=== PATIENT | female | born 1985 | race Hispanic/Latino ===

== ENCOUNTER 2019-02-07 01:24 | Observation (INO) | payer SELFPAY ==
[2019-02-07 01:51] LABS: #Basophils 0.1 thou/uL (0.0-0.2); #Eosinphils 0.1 thou/uL (0.0-0.7); #Monocytes 0.5 thou/uL (0.11-0.59); #Neutrophils 7.7 thou/uL (1.40-6.50); %Basophils 0.8 % (0.0-1.0); %Lymphocytes 19.3 % (21.0-51.0); %Neutrophils 73.9 % (42.0-75.0); Hemoglobin 12.2 g/dL (12.0-16.0); Mean Corpuscular HGB CONC 34.9 g/dL (32.0-36.0); Mean Corpuscular Hemoglobin 32.2 pg (27.0-31.0); Mean Corpuscular Volume 92.3 fL (78.0-98.0); Mean Platelet Volume 7.1 fL (7.4-10.4); Platelet Count 293 thou/uL (130-400); RBC Distribution Width 11.2 % (11.5-14.5); Red Blood Cell (RBC) Count 3.79 mill/uL (4.20-5.40); White Blood Cell (WBC) Count 10.5 thou/uL (4.8-10.8)
[2019-02-07 02:15] LABS: ALT (SGPT) 25 U/L (8-55); AST (SGOT) 20 U/L (5-34); Albumin 4.3 g/dL (3.5-5.0); Alkaline Phosphatase 92 U/L (40-150); Anion Gap 11 mmol/L (10-20); BUN (Urea Nitrogen) 17 mg/dL (7.0-18.7); Bilirubin, Total 0.3 mg/dL (0.2-1.2); Calc. Creatinine Clearance 0 mL/min (70-130); Calcium 9.8 mg/dL (7.8-10.44); Carbon Dioxide 28 mmol/L (22-29); Chloride 101 mmol/L (98-107); Estimated GFR-MDRD 46; Globulin 3.3 g/dL (2.4-3.5); Glucose 143 mg/dL (70-105); Lipase 10 U/L (8-78); Potassium 3.6 mmol/L (3.5-5.1); Protein, Total 7.6 g/dL (6.0-8.3); Sodium 136 mmol/L (136-145)
[2019-02-07] MEDS ORDERED: Ondansetron ODT 4 MG TAB ONE (02:32)
[2019-02-07 02:42] LABS: Pregnancy Test - Urine (BHCG) POSITIVE (Negative)
[2019-02-07 02:43] LABS: Bilirubin Negative (Negative); Blood, Urine Negative (Negative); Clarity CLEAR (Clear); Glucose, Urine (Dipstick) Negative (Negative); Leukocyte Negative (Negative); Nitrite Negative (Negative); Pregu Control Background? CLEAR/WHITE (CLR/WHITE); Pregu Control Bar Appear? YES (CONTROL BAR); Protein, Urine (Dipstick) Trace mg/dL (Neg-Trace); Urobilinogen 0.2 mg/dL (0.2-1.0)
[2019-02-07] MEDS ORDERED: Morphine 4 MG/ML VIAL ONE (03:56)
[2019-02-07] MEDS ORDERED: Acetaminophen 325 MG TAB PO PRN (04:12)
[2019-02-07] MEDS ORDERED: Ondansetron PF 4 MG/2 ML Vial IVP PRN (04:12)
[2019-02-07] MEDS ORDERED: Fentanyl 100 MCG/2 ML VIAL ONE ×4 (04:53→12:17)
[2019-02-07] MEDS ORDERED: Ketorolac Tromethamine 30 MG/ML VIAL ONE ×2 (05:15→14:07)
--- NOTE | 2019-02-07 05:46 | HP ---
CHIEF COMPLAINT: Left lower quadrant pain. HISTORY OF PRESENT ILLNESS: This is a 33-year-old, G3, P2-0-0-2 at unknown gestation, who presented to the emergency department for vaginal bleeding with passage of clots earlier and left lower quadrant pain. The patient reports that she has had vaginal bleeding off and on for the last 2 months and did not know she was prior to her arrival. She previously had regular monthly cycles up until about 2 months ago. She had days of spotting or no bleeding with other periods of heavier bleeding. Her bleeding became heavier about 2 weeks ago, then stopped and then started spotting again. Tonight, she started experiencing heavier bleeding as well, but it slowed down. She reports onset of left lower quadrant pain today that she describes as constant, but throbbing. She denies any other complaints today. REVIEW OF SYSTEMS: Negative for head, eyes, ears, nose, throat, cardiovascular, respiratory, GI, , neuropsych, musculoskeletal, skin, or constitutional symptoms other than mentioned above. PAST MEDICAL HISTORY: None. PAST SURGICAL HISTORY: 1. Knee surgery. 2. Prior x2. MEDICATIONS: None. ALLERGIES: NO KNOWN DRUG ALLERGIES. SOCIAL HISTORY: Negative for tobacco, alcohol, or drug abuse. 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 Naif Jiménez. The last baby was 8 years ago. She denies any history of STDs. PHYSICAL EXAMINATION: VITAL SIGNS: Afebrile with normal vital signs. GENERAL: Awake, alert, no acute distress. Appears comfortable. CHEST: Nonlabored breathing. ABDOMEN: Soft, minimally tender to palpation in the left lower quadrant. No guarding. No rebound. No masses palpated. PELVIC: Deferred. LABORATORY DATA: HCG level 2290, hemoglobin 12.2, hematocrit 35.0, otherwise unremarkable. IMAGING: Transvaginal ultrasound was performed by Radiology but no formal report is back yet. Revealing a uterus with no obvious gestational sac. Ovaries were visualized and appear within normal limits. There is a questionable mass on the left side, but no evidence of gestational sac. There is little to no free fluid in the pelvis. ASSESSMENT AND PLAN: A 33-year-old, 3, para 2, with early of unknown gestation and unknown location. The patient's exam is completely benign at this time. There is no obvious ectopic , although it cannot be ruled out at this point and still remains highly suspicious. Given the HCG level below the threshold and clinical findings, I will place the patient on observation for serial abdominal exams. I did discuss with the patient the concern for ectopic and possible course in management and she voices understanding. We will continue to monitor at this time. Job ID: [id number] MTDD
[2019-02-07 06:29] VITALS: BMI 35.4
[2019-02-07] MEDS ORDERED: Sodium Chloride 0.9% 10 ML ONE (06:42)
[2019-02-07] MEDS: Sodium Chloride 0.9% 1,000 ML IV SCH ×2 (06:44→16:30)
--- NOTE | 2019-02-07 07:26 | PRG ---
DATE OF SERVICE: 02/07/2019 SUBJECTIVE: The patient is experiencing more pain since I saw her last. She reports that her pain is now about a 6/10 and is requesting medication. She denies other complaints at this time. OBJECTIVE: VITAL SIGNS: Blood pressure 122/79, pulse 56, respiratory rate 20, temperature 97.7. GENERAL: Awake, alert, in no acute distress. CHEST: Nonlabored breathing. ABDOMEN: Soft, tender to palpation with voluntary guarding in the left lower quadrant. ASSESSMENT AND PLAN: A 33-year-old G3, P2, with suspected left ectopic , now with more findings on clinical exam consistent with that. I discussed continued expectant management versus diagnostic laparoscopy with left salpingectomy if a mass is found and recommend proceeding with this before rupture is evident given her change in clinical findings. She agrees and will be set up for diagnostic laparoscopy with possible left salpingectomy later today with Dr. Haji. Morphine ordered for pain. Consents will be signed prior to administration to any narcotics. Job ID: [id number] [facility]
[2019-02-07] MEDS: Morphine 4 MG/ML VIAL SLOW IVP PRN ×2 (07:39→12:44)
[2019-02-07] MEDS ORDERED: Midazolam HCl 2 mg/2 ml Vial ONE (08:55)
--- NOTE | 2019-02-07 09:19 | ULT ---
PRELIMINARY REPORT/[facility]/EMERGENCY AFTER HOURS PROCEDURE Addendum created by Fransico Lockwood MD on 02/07/2019 4:47 AM Central Time ([place] & [place]) THIS REPORT CONTAINS FINDINGS THAT MAY BE CRITICAL TO PATIENT CARE. The findings were verbally communicated via telephone conference with Concetta Meza at 4:47 AM CDT on 02/07/2019. The findings were acknowledged and understood. Initial Report created on 02/07/2019 4:40 AM Central Time ([place] & [place]) EXAM: US First Trimester, Transabdominal and US , Transvaginal US Duplex Artery and Vein of the Abdominal and/or Reproductive Organs. Complete Ovaries EXAM DATE/TIME: 02/07/2019 3:13 AM CLINICAL HISTORY: 33 years old, female; Pain and signs and symptoms; Lmp or gestational age (in weeks): Unknown; Antepa rtum complications; complicated by abdominal or pelvic pain; ; Patient HX: Llq pain and back pain with vaginal bleeding (on/off) x 2 months, n/v TECHNIQUE: Imaging protocol: Real-time transabdominal obstetrical ultrasound of the maternal pelvis and a first trimester , less than 14 weeks 0 days, with image documentation. Transvaginal imaging was us ed for better evaluation of the fetus and adnexa. Real-time duplex ultrasound scan of the arterial an d venous flow with color Doppler flow and spectral waveform analysis. Complete duplex exam focused on the ovaries. Duplex exam was added to evaluate for ovarian torsion or mass. COMPARISON: No relevant prior studies available. FINDINGS: Transabdominal ultrasound showed a large pelvic mass. Transvaginal ultrasound was performed for furth er evaluation. Duplex ultrasound scan with color Doppler flow and spectral waveform analysis was also performed for evaluation of pelvic and ovarian blood flow and torsion. Gestation: No intrauterine gestational sac. Large heterogeneous echogenicity left paraovarian/parauterine mass measuring up to 6.7cm, concerning for ectopic . Uterus: Endometrium measures 0.7 cm in thickness. No myometrial mass. Cervix: No acute findings. Right adnexa: No acute findings. Normal duplex of the ovary. No evidence of torsion. Left adnexa: See above. Small thick walled centrally cystic structure may represent a corpus luteum o r could be a part of the large left adnexal mass described above. Normal duplex of the ovary. No evid ence of torsion. Intraperitoneal: Trace free fluid. IMPRESSION: Large left paraovarian/parauterine mass described above, concerning for ectopic . Thank you for allowing us to participate in the care of your patient. Dictated and Authenticated by: Fransico Lockwood MD 02/07/2019 4:40 AM Central Time ([place] & [place]) FINAL REPORT TRANSVAGINAL PELVIC ULTRASOUND: HISTORY: patient with left lower quadrant lower back pain. Intermittent vaginal bleeding x2 months. Nausea and vomiting. Serum beta hCG of 2290.15. TECHNIQUE: Transabdominal and endovaginal imaging of the pelvis is performed. The ovaries are interrogated with willis-scale, color-flow, and Doppler imaging with spectral wave-form analysis. FINDINGS: A uterus is identified, measuring 8.8 x 3.9 x 5.1 cm. There is no evidence of a myometrial mass. Th e endometrial stripe is 0.7 cm. No evidence of a gestational sac, a yolk sac, or a pole. In t he left adnexa, there is a heterogeneous echotexture mass, measuring 3.4 cm. This lesion is paraovar veronica. There does appear to be an associated anechoic focus, measuring 1 cm. The possibility of an ec topic cannot be excluded. A large corpus luteal cyst is a second, though less favored, con sideration. There is vascular flow to both ovaries. IMPRESSION: Heterogeneous mass in the left paraovarian/left adnexal region. There is concern for ectopic pregnan cy until proven otherwise. This report is in agreement with the preliminary report by [facility]. POS: MAU
[2019-02-07] MEDS ORDERED: Bupivacaine HCl 0.5%/Epinephrine 1:200,000/PF 30 ml Vial ONE (09:20)
[2019-02-07] MEDS ORDERED: Promethazine HCl 25 MG/ML VIAL SLOW IVP PRN (12:16)
[2019-02-07] MEDS ORDERED: Promethazine HCl 25 MG/ML VIAL IM PRN (12:16)
[2019-02-07] MEDS ORDERED: Ondansetron HCl/PF 4 MG/2 ML Vial IVP PRN (12:16)
[2019-02-07] MEDS ORDERED: Ibuprofen 800 MG TAB PO PRN (13:14)
[2019-02-07] MEDS ORDERED: traMADol HCl 50 MG TAB PO PRN (13:14)
[2019-02-07] MEDS ORDERED: Morphine 4 MG/ML VIAL SLOW IVP PRN (13:20)
[2019-02-07] MEDS ORDERED: Succinylcholine Chloride 20 MG/ML 10 ml SYRINGE FS ONE (14:07)
[2019-02-07] MEDS ORDERED: Ondansetron PF 4 MG/2 ML Vial ONE (14:07)
[2019-02-07] MEDS ORDERED: Dexamethasone 20 MG/5 ML VIAL ONE (14:07)
[2019-02-07] MEDS ORDERED: PROPOFOL 200 MG/20 ML VIAL ONE (14:07)
[2019-02-07] MEDS ORDERED: ePHEDrine 50 MG/ML VIAL ONE (14:07)
[2019-02-07] MEDS ORDERED: Rocuronium Bromide 10 MG/ML (10ML VIAL) ONE (14:07)
[2019-02-07] MEDS ORDERED: Glycopyrrolate 0.2 MG/ML 5 ML SYRINGE ONE (14:07)
[2019-02-07] MEDS ORDERED: Lidocaine 1% PF 5 ML VIAL ONE (14:07)
[2019-02-07 16:12] VITALS: BP 110/69; TEMP 98.2
[2019-02-07 17:50] LABS: Anion Gap 10 mmol/L (10-20); BUN (Urea Nitrogen) 10 mg/dL (7.0-18.7); Calc. Creatinine Clearance 135 mL/min (70-130); Calcium 9.1 mg/dL (7.8-10.44); Carbon Dioxide 27 mmol/L (22-29); Chloride 102 mmol/L (98-107); Estimated GFR-MDRD 74; Glucose 131 mg/dL (70-105); Potassium 4.6 mmol/L (3.5-5.1); Sodium 134 mmol/L (136-145)
--- NOTE | 2019-02-08 00:22 | OP ---
DATE OF PROCEDURE: 02/07/2019 PROCEDURE: Diagnostic laparoscopy with left partial salpingectomy. PREOPERATIVE DIAGNOSES: 1. Abdominal pain. 2. Left adnexal mass. 3. Suspected for ectopic. POSTOPERATIVE DIAGNOSIS: Left tubal . ANESTHESIA: General. ESTIMATED BLOOD LOSS: Less than 50 cc. COMPLICATIONS: None. COUNTS: Correct. CONDITION: Stable to recovery room. SPECIMENS: Left tubal segment with products of conception. FINDINGS: Old adhesive disease in the pelvis, particularly in the left tubo-ovarian complex suggesting an old pelvic infection. The patient's right tube and ovary also show some disease, but anatomy is still clearly defined. Left portion of the tube holding the ectopic clearly visible. DESCRIPTION OF PROCEDURE: Ms. Nanda Marie is a 33-year-old female, who presented to the emergency room with abdominal pain and was diagnosed with a left adnexal mass and a positive test with no intrauterine . The patient was taken to the operating room where she was identified as herself after providing written informed consent for diagnostic laparoscopy. She was placed under general anesthesia without difficulty and placed in dorsal lithotomy position in [facility]. She was prepared and draped in normal sterile fashion. Given the possibility of an intrauterine , a single sponge stick was placed vaginally to assist with manipulation of the uterus. Attention was then placed abdominally where a Veress needle was introduced at the base of the umbilicus and upon entry, the abdomen was insufflated to 15 mmHg. A 5 mm skin incision was made in the base of the umbilicus and a 5 mm port with trocar was then introduced and proper placement was confirmed by laparoscope. The patient was noted to have some minimal blood in the abdominal cavity, very minimal and in the pelvis with some Trendelenburg, it immediately became apparent that there was a left tubal . However, on further inspection, it was noted that the tube had been densely adhesed to adnexal complex involving the ovary, tube, and some of the pelvic sidewall. The right tube and ovary, although were more easily identified separately and in proper anatomic position, appeared to have some filmy and a few band-like adhesions present. The tube appeared to be more stiff than should be and the end of the tube, though the fimbria were clearly visible, appeared to be beginning the process of clubbing, all likely a result of a previous infection. A 3rd port with trocar was inserted in the suprapubic region, 11 mm. This was done under direct visualization. With the aid of a LigaSure device and graspers, the tube carrying the ectopic was inspected and the tubo-ovarian complex was manipulated the best we could to try to clearly identify where the vascular structures were for the ovary. There was also some concern about the ureter. The right ureter was clearly visible and deep in the pelvis. This tubal complex was well away from the sidewall itself, though appeared to be arising out of this complex that had partially adhesed to the sidewall. With the aid of the LigaSure device, the isthmic portion of the tube was transected and immediately inferior to the tube, this tubal segment carrying the ectopic was excised. The fimbrial end of the tube was not visible as it was in this adhesed complex. There was blood clot present in what appeared to be in a cystic portion of the ovary and in the cavity presumed to be the end portion of the tube. This area was thoroughly irrigated and found to be hemostatic. There were a couple small areas in this complex that required hemostasis with fulguration with the bipolar device. The tubal segment with ectopic was then removed with an EndoCatch bag through the suprapubic port. Given the complex and adhesed nature of the tubo-ovarian complex, there was a desire to clearly see the ureter on that left side. The physiologic adhesions of the sigmoid colon to the left sidewall were taken down with blunt and sharp dissection and the peritoneum was inspected along that pelvic sidewall and clearly was not visible was the ureter at the level of this complex. Given this, there was fairly good certainty that the ureter was not involved in the complex itself and thus distant from the surgical site. With this completed, the abdomen was irrigated and the patient was taken out of Trendelenburg for which she was in most of the case. Abdomen was deflated to 8 mmHg and continued to have hemostasis. The ports were removed. Abdomen was then closed with 4-0 Monocryl on all 3 sites, the fascial incisions being subcentimeter or just at 1 cm. This sponge stick was removed from the vagina and the patient was extubated and taken to recovery in stable condition. Job ID: [id number]
--- NOTE | 2019-02-08 02:03 | DIS ---
DATE OF ADMISSION: 02/07/2019 DATE OF DISCHARGE: 02/07/2019 PREOPERATIVE DIAGNOSIS: Abdominal pain with suspected ectopic . DISCHARGE DIAGNOSIS: Left tubal ectopic . PROCEDURE: Diagnostic laparoscopy with left salpingectomy. CONSULTATIONS: None. HOSPITAL COURSE: The patient is a 33-year-old year old female who presented to Labor and Delivery with abdominal pain. The patient was noted to have an elevated quant about 2200 with a left adnexal mass. Given the overall picture, decision was made for the patient to come in for observation and serial exams. By morning time, it was more clear that this pain was worsening and the patient was taken to the operating room for a diagnostic laparoscopy at which case, a left tubal was confirmed and the tube was removed. For complete details, please refer to the operative note. The patient was subsequently extubated and taken back to the floor for recovery. She has been able to tolerate food, is getting good pain control with her medications. She is ambulating and voiding on her own. The patient will be discharged to home. She has instructions to follow up with [facility] [place] in 2 weeks for postop check. She also has instructions to seek medical attention should she experience increased bleeding, pain, fever, redness or drainage from her incision sites. She will be going home with tramadol 50 mg 1-2 tablets every 4 hours as needed for pain #10 and 800 mg of ibuprofen taken 3 times a day as needed for pain, #2. Job ID: [id number]
== END 2019-02-07 18:12 | disposition home or self-care (01) ==
LOC: ERS 01:24 → 3SE 05:50
PROVIDERS: ADMIT Obstetrics & Gynecology; ATTEND Obstetrics & Gynecology
PROC: 10T24ZZ Resection of Products of Conception, Ectopic, Percutaneous Endoscopic Approach (ICD-10-PCS; principal; 2019-02-07)
PROC: 0UT64ZZ Resection of Left Fallopian Tube, Percutaneous Endoscopic Approach (ICD-10-PCS; 2019-02-07)
DX: O00.102 Left tubal pregnancy without intrauterine pregnancy (principal); Z88.1 Allergy status to other antibiotic agents; Z79.899 Other long term (current) drug therapy
CPT/HCPCS: 36415; 51701; 76856; 80053; 81003; 81025; 83690; 84702; 85025; 86850; 86900; 86901; 88305; 96361; 96374; 96375; 96376; A4353; G0378; J0670; J1100; J1885; J2001; J2250; J2270; J2405; J2704; J3010; J3490; Q0162

== ENCOUNTER 2019-05-06 17:02 | Observation (INO) | payer OTHER ==
[2019-05-06] MEDS ORDERED: Morphine 4 MG/ML VIAL ONE ×2 (17:33→19:12)
[2019-05-06 17:34] LABS: #Eosinphils 0.1 thou/uL (0.0-0.7); #Lymphocytes 2.9 thou/uL (1.20-3.40); #Monocytes 0.5 thou/uL (0.11-0.59); %Basophils 0.6 % (0.0-1.0); %Eosinophils 1.8 % (0.0-10.0); %Lymphocytes 38.9 % (21.0-51.0); %Monocytes 6.2 % (0.0-10.0); %Neutrophils 52.5 % (42.0-75.0); Hemoglobin 13.4 g/dL (12.0-16.0); Mean Corpuscular HGB CONC 34.8 g/dL (32.0-36.0); Mean Corpuscular Hemoglobin 31.6 pg (27.0-31.0); Mean Corpuscular Volume 90.8 fL (78.0-98.0); Mean Platelet Volume 7.9 fL (7.4-10.4); Platelet Count 297 thou/uL (130-400); Red Blood Cell (RBC) Count 4.24 mill/uL (4.20-5.40); White Blood Cell (WBC) Count 7.6 thou/uL (4.8-10.8)
[2019-05-06] MEDS ORDERED: Ondansetron PF 4 MG/2 ML Vial ONE (17:34)
[2019-05-06] MEDS ORDERED: Ketorolac Tromethamine 30 MG/ML VIAL ONE (17:34)
[2019-05-06 17:53] LABS: ALT (SGPT) 40 U/L (8-55); AST (SGOT) 28 U/L (5-34); Albumin 4.3 g/dL (3.5-5.0); Alkaline Phosphatase 131 U/L (40-150); Anion Gap 13 mmol/L (10-20); BUN (Urea Nitrogen) 12 mg/dL (7.0-18.7); Bilirubin, Total 0.3 mg/dL (0.2-1.2); Calc. Creatinine Clearance 0 mL/min (70-130); Calcium 9.4 mg/dL (7.8-10.44); Carbon Dioxide 25 mmol/L (22-29); Chloride 103 mmol/L (98-107); Estimated GFR-MDRD 61; Globulin 3.3 g/dL (2.4-3.5); Glucose 82 mg/dL (70-105); Potassium 3.7 mmol/L (3.5-5.1); Protein, Total 7.6 g/dL (6.0-8.3); Sodium 137 mmol/L (136-145)
--- NOTE | 2019-05-06 18:49 | ULT ---
PELVIC ULTRASOUND: 05/06/19 Transabdominal and endovaginal ultrasound of the pelvis performed. HISTORY: Patient had ectopic in January with left salpingectomy. Patient has been recently diagnosed wi th a second ectopic on the right. Those images were obtained at an outside institution and are not available. The patient has had methotrexate treatment. Continued pain. FINDINGS: The uterus appears normal size measuring 8.8 cm in length x 4.3 cm AP dimension. On the endovaginal exam, the endometrial stripe is within normal range measured at 4 to 5 mm. There i s free fluid in the cul-de-sac. The right ovary is identified and there are normal appearing follicles. Color Doppler with spectral a nalysis demonstrates blood flow to the right ovary. There is evidence of a mass adjacent to the right ovary with a central cystic region which suggests a n ectopic with a gestational sac. There is evidence of a tiny yolk sac within this apparent ectopic. A measurement of this apparent ectopic gestation is 2.4 cm. The gestational sac/cystic comp onent is measured in the 1 cm range. Left ovary is identified. A large left ovarian cyst is measured at up to 3 cm. IMPRESSION: 1. Small to moderate free fluid in the pelvis. 2. Evidence of an ectopic in the right adnexa adjacent to the right ovary with gestati onal sac and evidence of a tiny yolk sac. 3. Both ovaries are identified with follicular cysts seen bilaterally as described above. POS: AGW
--- NOTE | 2019-05-06 19:40 | HP ---
TIME OF SERVICE: 1910 hours. REASON FOR ADMISSION: Right lower quadrant pain with known right ectopic status post methotrexate. HISTORY OF PRESENT ILLNESS: Ms. Marie is a 34-year-old 4, para 2, ectopic 1, now ectopic 2, who has been seen since March for a known right ectopic , status post left salpingectomy for left ectopic in January of 2019. She has received 2 doses of methotrexate at 50 mg/m2 in early March and late March. She has had declining beta HCG since the second dose of methotrexate. She reports onset of right lower quadrant pain yesterday that has been stable since then rating about a 6 or 7/10. She denies nausea, vomiting, or syncope. 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 No history of STDs, ectopic in January as noted. PAST MEDICAL HISTORY: None. PAST SURGICAL HISTORY: Knees and . MEDICATIONS: Methotrexate. ALLERGIES: NONE. SOCIAL HISTORY: Denies tobacco, alcohol, or drug abuse. FAMILY HISTORY: Noncontributory. REVIEW OF SYSTEMS: Positive only for right lower quadrant pain. PHYSICAL EXAMINATION: GENERAL: female. VITAL SIGNS: Pulse 86, respirations 18, temperature 98.7, blood pressure 110/72. HEENT: Within normal limits to auscultation bilaterally. HEART: Regular rate and rhythm. ABDOMEN: Soft and nontender. She has mild guarding to deep palpation in the right lower quadrant. She has no rebound. She has no CVA tenderness. Of note, the patient has received 1 mg of morphine and some Toradol pre-exam. RECTAL: Perineum reveals no bleeding. PELVIC: Deferred. EXTREMITIES: Without clubbing, cyanosis, or edema. LABORATORY DATA: Laboratory reveals hematocrit of 38%, which is consistent with the patient's previous hemograms. Basement is within normal limits. Her beta-hCG is 471, which is a decrease from 704 on 05/02 and 1466 on 04/25, 2769 on 04/16, and a peak of 5398 at second methotrexate administration on 04/12. IMAGING STUDIES: Ultrasound this evening reveals a normal uterus. No intrauterine . Normal right ovary. A 3 cm simple cyst on the left ovary and a complex mass in the right adnexa with a possible gestational sac measuring 1 cm with the overall ectopic diameter of 2.4 cm. There is a small amount, if any of free fluid in the pelvis, there is no bowel noted to be floating in the pelvis. IMPRESSION: Known right ectopic status post methotrexate administration x2 with declining beta-hCGs, status post left salpingectomy, and ultrasound findings consistent with minimal amount of intra-abdominal hemorrhage. The patient's pain is consistent with expected pain that is usually found status post methotrexate with resolution of ectopic . PLAN: Discussed options with the patient. Options include laparoscopic right salpingectomy versus serial hematocrits, exam, and expectant management. The patient desires to preserve right tube, if possible. We will admit to the hospital. Repeat hemoglobin and hematocrit in a.m., and follow up with serial exams. We will return the patient's care over to Dr. Diego Goode on Wednesday, 05/08. Job ID: [id number]
[2019-05-06] MEDS ORDERED: Zolpidem Tartrate 5 MG TAB PO PRN (22:04)
[2019-05-06] MEDS ORDERED: Ondansetron PF 4 MG/2 ML Vial IVP PRN (22:04)
[2019-05-06] MEDS ORDERED: Ondansetron ODT 4 MG TAB PO PRN (22:04)
[2019-05-06] MEDS ORDERED: Acetaminophen 325 MG TAB PO PRN (22:04)
[2019-05-06] MEDS ORDERED: Famotidine 20 MG TAB PO SCH (22:15)
[2019-05-06 22:25] VITALS: BMI 35.9
[2019-05-06] MEDS ORDERED: traZODone HCl 50 MG TAB PO SCH (22:30)
[2019-05-06] MEDS ORDERED: ALPRAZolam 1 MG TAB PO SCH (22:30)
[2019-05-06] MEDS ORDERED: hydrOXYzine 25 MG TAB PO SCH (22:30)
[2019-05-07 06:02] LABS: Band 3 % (5-11); Eosinophils 3 % (0-10); Hemoglobin 11.4 g/dL (12.0-16.0); Lymphocytes 60 % (21-51); MDiff Complete? YES; Mean Corpuscular HGB CONC 34.5 g/dL (32.0-36.0); Mean Corpuscular Hemoglobin 31.1 pg (27.0-31.0); Mean Corpuscular Volume 90.2 fL (78.0-98.0); Monocytes 8 % (0-10); Neutrophil 25 % (42-75); Platelet Count 247 thou/uL (130-400); Platelet Morphology Comment Appears Adequate; RBC Distribution Width 11.8 % (11.5-14.5); Reactive Lymphocytes 1 % (0-10); Red Blood Cell (RBC) Count 3.68 mill/uL (4.20-5.40); White Blood Cell (WBC) Count 6.5 thou/uL (4.8-10.8)
--- NOTE | 2019-05-07 07:19 | PRG ---
DATE OF SERVICE: 05/07/2019 TIME OF SERVICE: 0643 hours. SUBJECTIVE: The patient is sleeping. Upon arousal, she reports that she has soreness in the right lower quadrant consistent with doing too many sit up. She rates it a 4/10. She denies nausea or vomiting. She denies vaginal bleeding. PHYSICAL EXAMINATION: VITAL SIGNS: Temperature 97.5, pulse 75, respirations 16, and blood pressure 97/58. HEENT: Within normal limits. LUNGS: Clear to auscultation bilaterally. ABDOMEN: Soft and nontender with discomfort to palpation in right lower quadrant. She has active bowel sounds x4. LABORATORY: Hematocrit is 33.1%. On admission, it was 38.5, but this was pre-IV hydration. Platelet count is stable. White count is stable. IMPRESSION: Known right ectopic , status post methotrexate with appropriate beta-hCG fall, status post second dose of methotrexate with right lower quadrant pain. No evidence of ruptured ectopic at this time. PLAN: Repeat hemogram at 1500 hours. We will check out with Dr. Pettit and we will follow up the patient. The patient understands that treatment beyond conservative management will involve right salpingectomy. Job ID: [id number]
[2019-05-07] MEDS ORDERED: Famotidine 20 MG TAB PO SCH (09:00)
[2019-05-07] MEDS ORDERED: lamoTRIgine 100 MG TAB PO SCH (09:00)
[2019-05-07 12:23] VITALS: TEMP 98.3
[2019-05-07 15:40] LABS: #Eosinphils 0.1 thou/uL (0.0-0.7); #Lymphocytes 2.7 thou/uL (1.20-3.40); #Monocytes 0.4 thou/uL (0.11-0.59); #Neutrophils 2.3 thou/uL (1.40-6.50); %Basophils 0.8 % (0.0-1.0); %Eosinophils 2.6 % (0.0-10.0); %Lymphocytes 48.5 % (21.0-51.0); %Monocytes 7.1 % (0.0-10.0); Hemoglobin 11.4 g/dL (12.0-16.0); Mean Corpuscular HGB CONC 34.7 g/dL (32.0-36.0); Mean Corpuscular Hemoglobin 31.6 pg (27.0-31.0); Mean Corpuscular Volume 91.2 fL (78.0-98.0); Mean Platelet Volume 7.8 fL (7.4-10.4); Platelet Count 241 thou/uL (130-400); RBC Distribution Width 11.8 % (11.5-14.5); Red Blood Cell (RBC) Count 3.59 mill/uL (4.20-5.40); White Blood Cell (WBC) Count 5.6 thou/uL (4.8-10.8)
[2019-05-07 16:55] VITALS: BP 128/80
--- NOTE | 2019-05-07 20:14 | DIS ---
DATE OF ADMISSION: 05/06/2019 DATE OF DISCHARGE: 05/07/2019 DIAGNOSIS: Ectopic . PROCEDURES: Transvaginal ultrasound. HOSPITAL COURSE: The patient was admitted on 05/06/2019 with an ectopic , treated with methotrexate. She was status post left salpingectomy for left ectopic in January of this year and received two doses of methotrexate for her current ectopic in the right fallopian tube. She has had declining beta-hCG since her second dose, but had right lower quadrant pain. There was no evidence of rupture. She was admitted for serial blood counts and exams and found to be stable, and on hospital day 1, she was discharged home to follow up tomorrow as scheduled. DIET: Regular, advised to avoid foods high in folic acid as well as avoiding vitamins. ACTIVITIES: Pelvic rest. INSTRUCTIONS: Call or come to the emergency room for severe abdominal pain or other concerns. Follow up with Dr. Goode on Wednesday, 05/08. Job ID: [id number]
[2019-05-07] MEDS ORDERED: ALPRAZolam 1 MG TAB PO SCH (21:00)
[2019-05-07] MEDS ORDERED: traZODone HCl 50 MG TAB PO SCH (21:00)
[2019-05-07] MEDS ORDERED: hydrOXYzine 25 MG TAB PO SCH (21:00)
== END 2019-05-07 16:45 | disposition home or self-care (01) ==
LOC: ERS 17:02 → SURG A 20:05
PROVIDERS: ADMIT Surgery; ATTEND Surgery
DX: O00.101 Right tubal pregnancy without intrauterine pregnancy (principal); N83.02 Follicular cyst of left ovary; N83.01 Follicular cyst of right ovary; Z79.899 Other long term (current) drug therapy; Z98.890 Other specified postprocedural states
CPT/HCPCS: 36415; 76856; 80053; 84702; 85025; 86850; 86900; 86901; 96361; 96374; 96375; 96376; G0378; J1885; J2270; J2405